=== PATIENT | male | born 1970 | race Caucasian/White ===

== ENCOUNTER 2022-08-13 19:57 | Emergency (ER) | payer OTHER ==
[~2022-08-13] VITALS: Ht 175.3 cm; Wt 94.3 kg
--- NOTE | 2022-08-13 20:01 | NUR ---
Patient woke up from [facility] and [facility] team with patient. Patient refused for treatment and pulled IV. Patient states " I want to see my ." Dr. Schumacher examining patient.
--- NOTE | 2022-08-13 20:03 | NUR ---
Dr. Schumacher examining patient.
--- NOTE | 2022-08-13 20:04 | NUR ---
Security and RN at bedside.
[2022-08-13 20:05] VITALS: BP 100/59
--- NOTE | 2022-08-13 20:05 | NUR ---
PT JHONY ALS. TAKEN TO BED 7
--- NOTE | 2022-08-13 20:14 | NUR ---
PT AMBULATED OUT OF THE ED WITH
[2022-08-13 20:16] VITALS: BP 100/59
--- NOTE | 2022-08-13 20:16 | NUR ---
PT ELOPED WITH HIS , STATES "IT'S FINE, IM GOING TO TAKE HIM HOME WE JUST WANTED TO MAKE SURE HE WAS OK". PT ENTERED 'S VEHICLE WITH HIS AND [address] BAIN MADE AWARE.
== END 2022-08-13 20:16 | disposition home or self-care (01) ==
LOC: MED 19:57
DX: F10.129 Alcohol abuse with intoxication, unspecified (principal); I10 Essential (primary) hypertension
CPT/HCPCS: 99283